=== PATIENT | female | born 1985 | race Native Hawaiian/Other Pacific Islander ===

== ENCOUNTER 2018-08-05 20:07 | Emergency (ER) | payer BC ==
[~2018-08-05] VITALS: Ht 162.6 cm; Wt 94.3 kg
[2018-08-05 20:17] VITALS: TEMP 98.7
[2018-08-05] MEDS ORDERED: LEVO0.1224 PO (20:25)
[2018-08-05 21:57] VITALS: BP 132/81
== END 2018-08-05 21:58 | disposition home or self-care (01) ==
LOC: ED 20:07
DX: S82.831A Other fracture of upper and lower end of right fibula, initial encounter for closed fracture (principal); X50.1XXA Overexertion from prolonged static or awkward postures, initial encounter
CPT/HCPCS: 96372; 99283; J1885; L4350

== ENCOUNTER 2019-09-12 13:56 | Outpatient (CLI) | payer OTHER ==
[~2019-09-12 13:56] MED LIST: LEVO0.1224 PO
[2019-09-12 14:21] LABS: PLATELET COUNT 296 K/uL (152-353)
[2019-09-12 14:57] LABS: POTASSIUM 4.1 mmol/L (3.6-5.2)
== END 2019-09-12 21:26 | disposition home or self-care (01) ==
LOC: LAB 13:56
PROVIDERS: Nurse Practitioner Family
DX: Z00.00 Encounter for general adult medical examination without abnormal findings (principal); Z79.899 Other long term (current) drug therapy; R53.83 Other fatigue; R53.81 Other malaise; E03.9 Hypothyroidism, unspecified; E66.9 Obesity, unspecified
CPT/HCPCS: 80053; 80061; 83036; 84439; 84443; 85027

== ENCOUNTER 2019-12-18 12:59 | Outpatient (CLI) | payer OTHER ==
[2019-12-18 13:42] LABS: PLATELET COUNT 271 K/uL (152-353)
== END 2019-12-18 20:10 | disposition home or self-care (01) ==
LOC: LAB 12:59
PROVIDERS: Internal Medicine
DX: Z00.00 Encounter for general adult medical examination without abnormal findings (principal); E03.9 Hypothyroidism, unspecified; E66.9 Obesity, unspecified; R53.83 Other fatigue; Z79.899 Other long term (current) drug therapy; R53.81 Other malaise; F32.9 Major depressive disorder, single episode, unspecified
CPT/HCPCS: 80053; 80061; 82306; 82607; 83036; 84439; 84443; 84481; 85027

== ENCOUNTER 2020-03-24 14:20 | Outpatient (CLI) | payer OTHER | END 2020-03-24 19:43 | disposition home or self-care (01) | LOC: LAB 14:20 | DX: E03.9 Hypothyroidism, unspecified (principal) | CPT/HCPCS: 84439; 84443 ==